=== PATIENT | female | born 1965 | race Caucasian/White ===

== ENCOUNTER 2022-09-15 07:59 | Day surgery (SDC) | payer BC ==
[2022-09-11 13:28] VITALS: BMI 32.0
[~2022-09-15 07:59] MED LIST: Lidocaine 1% w/Epinephrine 1:100K 30 ML VIAL ONE; Oxymetazoline HCl 0.05% ( 15 ML ) ONE
[2022-09-15] MEDS ORDERED: Oxymetazoline HCl 0.05% ( 15 ML ) ONE (10:42)
[2022-09-15] MEDS ORDERED: Dexamethasone 20 MG/5 ML VIAL ONE (11:22)
[2022-09-15] MEDS ORDERED: PROPOFOL 20 ML ONE (11:22)
[2022-09-15] MEDS ORDERED: Ondansetron PF 4 MG/2 ML Vial ONE (11:22)
[2022-09-15] MEDS ORDERED: Glycopyrrolate 0.2 MG/ML 5 ML SYRINGE ONE (11:22)
[2022-09-15] MEDS ORDERED: Midazolam HCl 2 mg/2 ml Vial ONE (11:22)
[2022-09-15] MEDS ORDERED: Lidocaine 1% PF 5 ML VIAL ONE (11:22)
[2022-09-15] MEDS ORDERED: Fentanyl 100 MCG/2 ML VIAL ONE ×2 (11:22→15:50)
[2022-09-15] MEDS ORDERED: CEFAZOLIN 1 GM VIAL ONE (12:48)
[2022-09-15] MEDS ORDERED: MINERAL OIL/WHITE PETROLATUM 3.5 GM TUBE ONE (13:04)
[2022-09-15] MEDS ORDERED: ePHEDrine Sulfate 50 MG/10 ML VIAL ONE (13:23)
[2022-09-15] MEDS ORDERED: EPINEPHrine 1 MG/ML AMP ONE (13:27)
[2022-09-15] MEDS ORDERED: Triamcinolone 40 MG/ML VIAL ONE (13:55)
[2022-09-15] MEDS ORDERED: hydrALAZINE 20 MG/ML VIAL ONE (14:35)
[2022-09-15] MEDS ORDERED: Labetalol HCl 100 MG/20 ML VIAL ONE (15:08)
[2022-09-15] MEDS ORDERED: HYDROcodone/Acetaminophen 5/325 mg Tablet ONE (15:53)
== END 2022-09-15 16:35 | disposition home or self-care (01) ==
LOC: CSHSDC 07:59
PROVIDERS: ATTEND Otolaryngology Plastic Surgery within the Head & Neck
PROC: 09TU4ZZ Resection of Right Ethmoid Sinus, Percutaneous Endoscopic Approach (ICD-10-PCS; principal; 2022-09-15)
DX: J32.0 Chronic maxillary sinusitis (principal); J32.2 Chronic ethmoidal sinusitis; J32.8 Other chronic sinusitis; J40 Bronchitis, not specified as acute or chronic; F32.A Depression, unspecified; G43.909 Migraine, unspecified, not intractable, without status migrainosus; E05.90 Thyrotoxicosis, unspecified without thyrotoxic crisis or storm; F17.210 Nicotine dependence, cigarettes, uncomplicated; Z91.048 Other nonmedicinal substance allergy status; Z88.8 Allergy status to other drugs, medicaments and biological substances; Z88.3 Allergy status to other anti-infective agents; Z79.899 Other long term (current) drug therapy
CPT/HCPCS: 88305; 88311; J0171; J0360; J0690; J1100; J2250; J2405; J2704; J3010; J3301